=== PATIENT | male | born 1960 | race Caucasian/White ===

== ENCOUNTER 2016-04-29 16:19 | Emergency (ER) | payer OTHER ==
[~2016-04-29] VITALS: Ht 170.2 cm; Wt 86.0 kg
[~2016-04-29 16:19] MED LIST: ATOR40TA PO; LISI-586 PO
[2016-04-29 16:24] VITALS: BP 158/101; PULSE 104; RESP 18; TEMP 97.6; O2SAT 97
[2016-04-29] MEDS ORDERED: LISI-586 PO (16:35)
[2016-04-29] MEDS ORDERED: ATOR40TA16 PO (16:35)
[2016-04-29] MEDS ORDERED: TETANUS/DIPHTHERIA TOXOID ADULT 0.5 ML VIAL IM ONE (16:45)
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
== END 2016-04-29 17:03 | disposition home or self-care (01) ==
LOC: PHED 16:19
DX: S00.81XA Abrasion of other part of head, initial encounter (principal); S60.512A Abrasion of left hand, initial encounter; S60.511A Abrasion of right hand, initial encounter; S20.212A Contusion of left front wall of thorax, initial encounter; S20.229A Contusion of unspecified back wall of thorax, initial encounter; I10 Essential (primary) hypertension; Z87.39 Personal history of other diseases of the musculoskeletal system and connective tissue; Z87.19 Personal history of other diseases of the digestive system; V29.3XXA Motorcycle rider (driver) (passenger) injured in unspecified nontraffic accident, initial encounter
CPT/HCPCS: 99284